=== PATIENT | male | born 1955 | race Caucasian/White ===

== ENCOUNTER 2022-06-11 18:12 | Inpatient (IN) | payer OTHER, SELFPAY ==
--- NOTE | ~2022-06-11 | MR_ITS ---
MR LUMBAR SPINE WITHOUT AND WITH CONTRAST CLINICAL INFORMATION: Abnormal lumbar spine CT with lumbar pain. COMPARISON: Lumbar spine CT 06/11/2022. TECHNIQUE: MRI of the lumbar spine was obtained using routine sequences with and without contrast. Intravenous contrast: Gadavist 6.5 mL FINDINGS: 5 nonrib-bearing lumbar-type vertebral bodies. Straightening the lumbar lordosis. Vertebral body heights are maintained. Moderate disc volume loss at L4-L5. There is disc desiccation at all lumbar levels. Modic type I endplate signal changes at L4-L5. No additional bone marrow edema. No acute fractures. Conus terminates at the L1 level. No significant extraspinal soft tissue findings. L1-L2: Diffuse annular disc bulge and prominent dorsal epidural fat result in mild to moderate central canal stenosis. No foraminal stenosis. L2-L3: Diffuse annular disc bulge with superimposed right paracentral disc protrusion and epidural lipomatosis results in moderate to severe central canal stenosis/thecal sac effacement. Right paracentral disc protrusion compresses the traversing right L3 nerve root within the right subarticular zone. Mild foraminal encroachment bilaterally. L3-L4: There is a 2.5 cm CC by 1.5 cm TV by 1 cm AP peripherally enhancing structure within the dorsal and left lateral epidural space at the L3 vertebral body level and the L3-L4 disc level that results in severe thecal sac effacement and compression of adjacent cauda equina nerve roots. Differential considerations include but are not limited to a complex disc herniation wrapping around the epidural space with posterior migration, a thrombosed, epidural varix, a complex synovial cyst, and PVNS. The appearance is not suggestive of infection. Neurosurgical consultation is advised. Right lateral disc osteophyte and facet arthropathy result in mild to moderate right-sided foraminal encroachment. L4-L5: Diffuse annular disc bulge and severe bilateral facet arthropathy and ligamentum flavum thickening. Findings in concert result in moderate central canal stenosis, severe bilateral subarticular zone stenosis with compression of the traversing L5 nerve roots bilaterally, and a left lateral disc protrusion results in severe left foraminal stenosis with compression of the exiting left L4 nerve root. Mild to moderate right foraminal encroachment. L5-S1: Diffuse annular disc bulge and severe bilateral hypertrophic facet arthropathy. No central canal stenosis. Severe bilateral foraminal stenosis with compression of the exiting L5 nerve roots bilaterally. MR/MR lumbar spine wo/w con IMPRESSION: - There is a 2.5 cm CC by 1.5 cm TV by 1 cm AP peripherally enhancing structure within the dorsal and left lateral epidural space at the L3 vertebral body level and the L3-L4 disc level that results in severe thecal sac effacement and compression of adjacent cauda equina nerve roots. Differential considerations include but are not limited to a complex disc herniation wrapping around the epidural space with posterior migration, a thrombosed, epidural varix, a complex synovial cyst, and PVNS. The appearance is not suggestive of infection. Neurosurgical consultation is advised. - At L4-L5, advanced multifactorial degenerative changes result in moderate central canal stenosis, severe bilateral subarticular zone stenosis with compression of the traversing L5 nerve roots bilaterally, and a left lateral disc protrusion results in severe left foraminal stenosis with compression of the exiting left L4 nerve root. Modic type I endplate signal changes at this level. - At L5-S1, advanced multifactorial degenerative changes result in severe bilateral foraminal stenosis with compression of the exiting L5 nerve roots bilaterally. - At L2-L3, advanced spondylitic changes and epidural lipomatosis result in moderate to severe thecal sac effacement/central canal stenosis. A right paracentral disc protrusion at this level compresses the traversing right L3 nerve root within the right subarticular zone. Findings were discussed with Dr.Raphael Self at 2:06 PM on 06/12/2022.
--- NOTE | ~2022-06-11 | MR_ITS ---
EXAMINATION: MR BRAIN WITHOUT CONTRAST CLINICAL INFORMATION: Leg weakness. COMPARISON: None available. TECHNIQUE: MRI of the brain was obtained using routine sequences without contrast. FINDINGS: No focal restricted diffusion is demonstrated to suggest acute or subacute cerebral ischemia. No evidence of acute or chronic hemorrhagic products on heme-sensitive imaging. Scattered periventricular, deep white matter, and brainstem T2 FLAIR hyperintensities consistent with mild to moderate underlying microangiopathy. The ventricles are normal in morphology and size. No abnormal mass effect. No midline shift. Normal appearance of the pituitary gland. Normal positioning of the cerebellar tonsils. Normal arterial and venous vascular flow voids are present. Normal, homogeneous marrow signal. Moderate polypoid mucosal thickening of the paranasal sinuses. No signal abnormalities within the mastoids. MR/MR head/brain wo con IMPRESSION: 1. No acute intracranial abnormalities. 2. Mild to moderate underlying microangiopathy. 3. Moderate polypoid mucosal sinonasal disease.
--- NOTE | ~2022-06-11 | CT_ITS ---
EXAMINATION: CT ABDOMEN AND PELVIS WITHOUT CONTRAST CLINICAL INFORMATION: Left flank and abdominal pain. Lumbar pain with bilateral leg weakness COMPARISON: CT abdomen pelvis 05/29/2007 TECHNIQUE: Multidetector volumetric imaging was performed from the superior aspect of the liver through the pubic symphysis. Sagittal and coronal reformatted images were obtained on the technologist's workstation. Additional axial images were obtained through the lumbar spine. Coronal and sagittal reformatted images were generated. This CT examination was performed using dose optimization techniques as appropriate, variously including the following: *Automated exposure control *Adjustment of mA and/or kV according to patient size (this includes techniques or standardized protocols for targeted exams where dose is matched to indication/reason for exam; i.e. extremities or head) *Use of iterative reconstruction technique DLP: 622 mGy-cm. FINDINGS: Assessment of solid viscera is limited due to lack of intravenous contrast. Lung bases:Grossly clear. Liver: Normal size and attenuation. No liver lesions. Gallbladder and bile ducts:No calcified gallstones, mural thickening, or pericholecystic fluid/inflammatory change. No biliary ductal dilation. Pancreas: No pancreatic lesion, ductal dilation, or peripancreatic inflammatory change. Spleen: Normal size. No splenic lesion. Adrenal Glands: Unremarkable. Kidneys and Ureters: Symmetric nephrograms. No hydronephrosis. No renal cyst or mass identified. Vasculature:Mildly tortuous abdominal aorta. No abdominal aortic aneurysm. Lymph nodes:No retroperitoneal or mesenteric lymphadenopathy. Gastrointestinal Tract: No dilated bowel loops or bowel wall thickening. The appendix is not seen. There is no pericecal inflammation to suggest acute appendicitis. Peritoneum:No ascites or intra-abdominal free air. Abdominal wall:No hernia. Bladder: Mildly diffusely thick-walled, unchanged. Pelvic Viscera: Prostate gland is normal size. Dense calcifications of the vas deferens redemonstrated, finding that can be seen in the setting of diabetes. Correlate clinically. Bones: No acute fracture or suspicious osseous lesion. CT lumbar spine: Straightening of the normal lumbar lordosis. Minimal retrolisthesis at L5-S1. No fracture. Vertebral body heights are maintained. Findings at specific levels: L1-L2: Minimal diffuse disc bulge with mild central canal with minimal neural foraminal narrowing. L2-L3: Minimal diffuse disc bulge with a superimposed right subarticular disc protrusion mild to moderately narrowing the central canal. Moderate to severe right lateral recess stenosis. Mild bilateral neural foraminal stenosis. L3-L4: Suspected severe central canal stenosis secondary to diffuse disc bulge and approximately 2.1 cm in length ovoid shaped structure in the dorsal left epidural space, see the nagy image. This could represent a large ganglion or synovial facet cyst versus an extruded or sequestered disc versus other mass. MRI is recommended for evaluation. Moderate bilateral neural foraminal stenosis. L4-L5: Moderate central canal narrowing secondary to diffuse disc bulge with facet arthrosis. Severe left and moderate right neural foraminal stenosis secondary to facet arthrosis and left foraminal disc herniation. L5-S1: Mild diffuse disc bulge and bilateral facet arthrosis. No significant central canal narrowing. Severe bilateral neural foraminal stenosis. CT/CT abdomen pelvis wo con IMPRESSION: 1. No radiodense urinary tract calculi. No hydronephrosis. 2. No acute intra-abdominal process identified. 3. Mildly diffusely thick-walled urinary bladder. Correlate clinically with signs or symptoms of chronic bladder dysfunction or bladder outlet obstruction. 4. Multilevel degenerative disc disease in the lumbar spine. At L3-L4 there is suspected severe central spinal canal stenosis in the 2.1 cm epidural space mass which is indeterminate though may represent extruded/sequestered disc material or a large cyst versus other mass. Recommend MRI lumbar spine for assessment. 5. Additional central canal and neural foraminal stenosis as detailed above.
--- NOTE | ~2022-06-11 | XR_ITS ---
EXAMINATION: XR BILATERAL HIPS WITH AP PELVIS CLINICAL INFORMATION: Back and hip pain COMPARISON: CT abdomen pelvis performed earlier the same day TECHNIQUE: AP pelvis, AP and frog-leg lateral views both hips FINDINGS: No fracture or dislocation. Bilateral hip joint spaces are maintained. Minimal acetabular rim osteophyte formation. No large osteophytes. No radiographic evidence of femoral head avascular necrosis. The pubic symphysis and SI joints are congruent and intact. Disc degenerative changes in the lower lumbar spine are noted. Calcifications of the vas deferens also seen. XR/XR hips NIKOLAY min 3V IMPRESSION: 1. No acute osseous injury. 2. Minimal bilateral hip joint degenerative change with preserved joint spaces.
[2022-06-11 18:31] VITALS: BP 136/83; PULSE 79; RESP 16; TEMP 36.7; O2SAT 97; BMI 24.7
--- NOTE | 2022-06-11 20:16 | ED_ITS ---
HPI - Back Pain/Injury General Chief Complaint: Back Pain/Injury Stated Complaint: weakness/back pain Time Seen by Provider: 06/11/22 20:36 Source: patient Mode of arrival: ambulatory (With cane) Limitations: language barrier History of Present Illness HPI Narrative: 66-year-old male presents with lower back pain radiating down bilateral legs with an episode of weakness were made both of his legs gave out. He got a new bed, and states that it was put together incorrectly and feels that his back pain could be related to that. He also reports left-sided flank pain radiating into his abdomen. Has been taking [id number] medications for pain with poor effect. He does not report fevers, chills, bowel or bladder incontinence, or loss of sensation. He does not report injury or trauma. MD elicited complaint: back pain Pertinent past history: prior back pain Onset (ago): day(s) (4) Timing: constant Severity: moderate Pain scale (0-10): 6 Similar Symptoms Previously: Yes Quality: aching and throbbing Location: lumbar spine and left flank Radiation: groin Exacerbating factors: movement, sitting upright, walking and other (Laying flat) Relieving factors: none Context: unknown Associated symptoms: weakness, difficulty walking and abdominal pain Treatments prior to arrival: NSAIDS and acetaminophen Work related injury: No Related Data Home Medications Medication Instructions Recorded Confirmed atorvastatin 20 mg tablet 1 tab PO DAILY 06/12/22 06/12/22 chlorthalidone 25 mg tablet 1 tab PO DAILY 06/12/22 06/12/22 clonazepam 0.5 mg tablet 1 tab PO TID PRN Anxiety 06/12/22 06/12/22 cyanocobalamin (vitamin B-12) 1 tab PO DAILY 06/12/22 06/12/22 1,000 mcg tablet lisinopril 20 mg tablet 1 tab PO DAILY 06/12/22 06/12/22 omega-3 fatty acids-fish oil 340 1 cap PO DAILY 06/12/22 06/12/22 mg-1,000 mg capsule (Fish Oil) risperidone 1 mg tablet 1 tab PO BEDTIME 06/12/22 06/12/22 sertraline 100 mg tablet 1 tab PO DAILY 06/12/22 06/12/22 zolpidem 10 mg tablet 1 tab PO BEDTIME PRN Sleep 06/12/22 06/12/22 Allergies Allergy/AdvReac Type Severity Reaction Status Date / Time No Known Allergies Allergy Verified 06/11/22 18:31 Review of Systems Review of Systems: Constitutional: No Fever, No Chills ENT/Mouth: No Ear Pain, No Hoarseness, No sore throat Eyes: No Eye Pain, No Swelling, No Redness, No Foreign Body Cardiovascular: No Chest Pain, No SOB Respiratory: No Cough, No Dyspnea Gastrointestinal: No Nausea, No Vomiting, No Diarrhea, No abdominal Pain Genitourinary: No Dysuria, No Hematuria Musculoskeletal: positive lumbar back pain, No Myalgias, No Joint Swelling Skin: No Skin lacerations, No rash Neuro: Positive bilateral lower extremity Weakness, No Numbness, No Paresthesias, No Loss of Consciousness, No Dizziness, No Headache Psych: No Anxiety/Panic, No Depression Heme/Lymph: no easy bruising, no Lymphadenopathy Endocrine: No Polyuria, No Polydipsia Yes all other systems are reviewed and are negative [facility] Past Medical History Attestation statement: The following information was validated with the patient. Source: old records reviewed Social History Social History Advance Directives: No Advance Directives Information Provided: Yes Physical Exam Vital Signs: Vital Signs: Last Vital Signs Temp 98.7 F 06/12/22 01:57 Pulse 81 06/12/22 01:57 Resp 16 06/12/22 01:57 BP 152/100 H 06/12/22 01:57 Pulse Ox 98 06/12/22 01:57 O2 Del Method 06/12/22 01:57 BMI result Body Mass Index 24.7 Appearance: Alert. Oriented X3. No acute distress. Eyes: Pupils equal, round and reactive to light. ENT: Pharynx normal. Neck: Normal inspection. Neck supple. CVS: Normal heart rate and rhythm. Pulses normal. Respiratory: No respiratory distress. Breath sounds normal. Abdomen: Soft and nontender. Bilateral CVA tenderness noted. Skin: Skin warm and dry. Normal skin color. Normal skin turgor. Extremities: Vertebral tenderness noted to palpation to the lumbar spine at L4- L5, strength 4/5 to lower extremities agaiinst resistance, 5/5 to upper extremities. Neuro: No motor deficit. No sensory deficit. Cranial nerves 2-12 intact. Course Course Course Narrative: 66-year-old male presents for lumbar back pain and bilateral lower extremity weakness. States that his legs gave out while he was walking. Reports his exacerbation of chronic back pain to be because of mattress that he has been sleeping on that was put together incorrectly. Physical exam indicates bilateral lower extremity weakness 4/5 against resistance. He has full sensation, and equal patellar reflexes. Tenderness to the lumbar spine at L4- L5. Bilateral CVA tenderness. Will order CT scan of abdomen pelvis with lumbar spine. X-rays of the hips. BUN 31 baseline BUN 28, creatinine 2.05, baseline creatinine is 1.3. CT scan indicates severe central canal stenosis secondary to disc bulge and approximately 2.1 cm in length COVID shaped structure in the dorsal left epid ural space. lumbar mass versus cyst. Hip x-rays are negative for acute findings, does show arthritis. Discussion with hospitalist regarding plan of care to admit. Hospitalist would like discussion with Neurology for plan prior to accepting admission. Patient does have BELEN, patient will be on maintenance fluids. 22:22 discussion with Neurology. Plan is to keep for observation, Neurology will round the morning. Plan of care is to admit for lumbar mass, requiring MRI tomorrow. Consultations Consultation #1: Aaron Time: 22:22 Consultation #2: renetta Time: 22:23 MDM - Back Pain/Injury Differential Diagnosis Differential diagnosis: Likely lumbar radiculopathy, strain of lumbar region, pyelonephritis and discitis Medical Records Attestation: I reviewed the patient's medical records. Lab Data Attestation: I reviewed the patient's lab results. Result diagrams: 06/11/22 21:15 06/11/22 21:15 Labs: Lab Results 06/11/22 06/11/22 06/11/22 Range/Units 21:15 21:15 21:15 WBC 5.0 (4.8-10.8) X10*3/uL RBC 4.39 L (4.60-5.80) X10*6/uL Hgb 14.4 (14.0-18.0) g/dl Hct 41.2 L (42.0-52.0) % MCV 93.8 (80.0-98.0) fL MCH 32.8 (27.0-33.0) pg MCHC 35.0 (31.0-36.0) g/dl RDW 11.9 (11.0-16.0) % Plt Count 187 (160-400) X10*3/uL MPV 10.4 (9.4-12.4) fL Immature Gran % (Auto) 0.4 (0.0-0.4) % Neut % (Auto) 57.3 (45-73) % Lymph % (Auto) 29.4 (20-40) % [place] % (Auto) 8.5 (2-11) % Eos % (Auto) 4.0 (0-4) % Baso % (Auto) 0.4 (0-2) % Lymph # (Auto) 1.5 (1.2-4.9) X10*3/uL [place] # (Auto) 0.4 (0.1-1.2) X10*3/uL Eos # (Auto) 0.2 (0.0-0.4) X10*3/uL Baso # (Auto) 0.0 (0.0-0.2) X10*3/uL Abs Immat Gran (auto) 0.02 (0.00-0.03) X10*3/uL Absolute Neuts (auto) 2.9 (2.0-8.3) x10*3/uL Absolute Nucleated RBC 0.000 (0.0-0.012) X10*3/uL Nucleated RBC % (auto) 0.0 (0.0-0.2) /100WBC PT 11.7 (10.0-13.1) SEC INR 1.0 (0.9-1.1) APTT 24.2 L (26.0-36.4) SEC Sodium 142 (135-145) mmol/L Potassium 3.9 (3.3-5.1) mmol/L Chloride 107 (96-108) mmol/L Carbon Dioxide 21 L (22-29) mmol/L Anion Gap 18 (12-20) BUN 31 H (9-16) mg/dL Creatinine 2.05 H (0.5-1.4) mg/dL Estim Creat Clear Calc 31.6 Estimated GFR 33 Random Glucose 92 (60-115) mg/dL Calcium 9.2 (8.4-10.2) mg/dL Magnesium 1.9 (1.6-2.6) mg/dL Troponin I High Sens (<3.5-35.0) ng/L Urine Color Urine Appearance Urine pH (5.0-8.0) Ur Specific [place] (1.005-1.025) Urine Protein (NEG-TRACE) MG/DL Urine Glucose (UA) (NEG) MG/DL Urine Ketones (NEG) MG/DL Urine Blood (NEG) Urine Nitrite (NEG) Ur Leukocyte Esterase (NEG) COVID-19 (TRACE) (Negative) COVID-19 Clin Com 06/11/22 06/11/22 06/11/22 Range/Units 21:15 21:49 22:36 WBC (4.8-10.8) X10*3/uL RBC (4.60-5.80) X10*6/uL Hgb (14.0-18.0) g/dl Hct (42.0-52.0) % MCV (80.0-98.0) fL MCH (27.0-33.0) pg MCHC (31.0-36.0) g/dl RDW (11.0-16.0) % Plt Count (160-400) X10*3/uL MPV (9.4-12.4) fL Immature Gran % (Auto) (0.0-0.4) % Neut % (Auto) (45-73) % Lymph % (Auto) (20-40) % [place] % (Auto) (2-11) % Eos % (Auto) (0-4) % Baso % (Auto) (0-2) % Lymph # (Auto) (1.2-4.9) X10*3/uL [place] # (Auto) (0.1-1.2) X10*3/uL Eos # (Auto) (0.0-0.4) X10*3/uL Baso # (Auto) (0.0-0.2) X10*3/uL Abs Immat Gran (auto) (0.00-0.03) X10*3/uL Absolute Neuts (auto) (2.0-8.3) x10*3/uL Absolute Nucleated RBC (0.0-0.012) X10*3/uL Nucleated RBC % (auto) (0.0-0.2) /100WBC PT (10.0-13.1) SEC INR (0.9-1.1) APTT (26.0-36.4) SEC Sodium (135-145) mmol/L Potassium (3.3-5.1) mmol/L Chloride (96-108) mmol/L Carbon Dioxide (22-29) mmol/L Anion Gap (12-20) BUN (9-16) mg/dL Creatinine (0.5-1.4) mg/dL Estim Creat Clear Calc Estimated GFR Random Glucose (60-115) mg/dL Calcium (8.4-10.2) mg/dL Magnesium (1.6-2.6) mg/dL Troponin I High Sens < 3.5 (<3.5-35.0) ng/L Urine Color YELLOW Urine Appearance CLEAR Urine pH 5.5 (5.0-8.0) Ur Specific [place] 1.020 (1.005-1.025) Urine Protein NEG (NEG-TRACE) MG/DL Urine Glucose (UA) NEG (NEG) MG/DL Urine Ketones NEG (NEG) MG/DL Urine Blood NEG (NEG) Urine Nitrite NEG (NEG) Ur Leukocyte Esterase NEG (NEG) COVID-19 (TRACE) Negative (Negative) COVID-19 Clin Com See Note Imaging Data CT abdomen pelvis lumbar spine: Attestation: I personally reviewed and interpreted this imaging study as follows: Radiologist's impression: EXAMINATION: CT ABDOMEN AND PELVIS WITHOUT CONTRAST CLINICAL INFORMATION: Left flank and abdominal pain. Lumbar pain with bilateral leg weakness COMPARISON: CT abdomen pelvis 05/29/2007 TECHNIQUE: Multidetector volumetric imaging was performed from the superior aspect of the liver through the pubic symphysis. Sagittal and coronal reformatted images were obtained on the technologist's workstation. Additional axial images were obtained through the lumbar spine. Coronal and sagittal reformatted images were generated. This CT examination was performed using dose optimization techniques as appropriate, variously including the following: *Automated exposure control *Adjustment of mA and/or kV according to patient size (this includes techniques or standardized protocols for targeted exams where dose is matched to indication/reason for exam; i.e. extremities or head) *Use of iterative reconstruction technique DLP: 622 mGy-cm. FINDINGS: Assessment of solid viscera is limited due to lack of intravenous contrast. Lung bases:Grossly clear. Liver: Normal size and attenuation. No liver lesions. Gallbladder and bile ducts:No calcified gallstones, mural thickening, or pericholecystic fluid/inflammatory change. No biliary ductal dilation. Pancreas: No pancreatic lesion, ductal dilation, or peripancreatic inflammatory change.? Spleen: Normal size. No splenic lesion.? Adrenal Glands: Unremarkable.? Kidneys and Ureters: Symmetric nephrograms. No hydronephrosis.? No renal cyst or mass identified. Vasculature:Mildly tortuous abdominal aorta. No abdominal aortic aneurysm. Lymph nodes:No retroperitoneal or mesenteric lymphadenopathy. Gastrointestinal Tract: No dilated bowel loops or bowel wall thickening. The appendix is not seen. There is no pericecal inflammation to suggest acute appendicitis. Peritoneum:No ascites or intra-abdominal free air. Abdominal wall:No hernia. Bladder: Mildly diffusely thick-walled, unchanged.? Pelvic Viscera: Prostate gland is normal size. Dense calcifications of the vas deferens redemonstrated, finding that can be seen in the setting of diabetes. Correlate clinically.? Bones: No acute fracture or suspicious osseous lesion. CT lumbar spine: Straightening of the normal lumbar lordosis. Minimal retrolisthesis at L5-S1. No fracture. Vertebral body heights are maintained. Findings at specific levels: L1-L2: Minimal diffuse disc bulge with mild central canal with minimal neural foraminal narrowing. L2-L3: Minimal diffuse disc bulge with a superimposed right subarticular disc protrusion mild to moderately narrowing the central canal. Moderate to severe right lateral recess stenosis. Mild bilateral neural foraminal stenosis. L3-L4: Suspected severe central canal stenosis secondary to diffuse disc bulge and approximately 2.1 cm in length ovoid shaped structure in the dorsal left epidural space, see the nagy image. This could represent a large ganglion or synovial facet cyst versus an extruded or sequestered disc versus other mass. MRI is recommended for evaluation. Moderate bilateral neural foraminal stenosis. L4-L5: Moderate central canal narrowing secondary to diffuse disc bulge with facet arthrosis. Severe left and moderate right neural foraminal stenosis secondary to facet arthrosis and left foraminal disc herniation. L5-S1: Mild diffuse disc bulge and bilateral facet arthrosis. No significant central canal narrowing. Severe bilateral neural foraminal stenosis. CT/CT lumbar spine wo con IMPRESSION: ? 1. No radiodense urinary tract calculi. No hydronephrosis. 2. No acute intra-abdominal process identified. 3. Mildly diffusely thick-walled urinary bladder. Correlate clinically with signs or symptoms of chronic bladder dysfunction or bladder outlet obstruction. 4. Multilevel degenerative disc disease in the lumbar spine. At L3-L4 there is suspected severe central spinal canal stenosis in the 2.1 cm epidural space mass which is indeterminate though may represent extruded/sequestered disc material or a large cyst versus other mass. Recommend MRI lumbar spine for assessment. 5. Additional central canal and neural foraminal stenosis as detailed above. ? Hip x-ray: Attestation: I personally reviewed and interpreted this imaging study as follows: Radiologist's impression: EXAMINATION: XR BILATERAL HIPS WITH AP PELVIS CLINICAL INFORMATION: Back and hip pain COMPARISON: CT abdomen pelvis performed earlier the same day TECHNIQUE: AP pelvis, AP and frog-leg lateral views both hips FINDINGS: No fracture or dislocation. Bilateral hip joint spaces are maintained. Minimal acetabular rim osteophyte formation. No large osteophytes. No radiographic evidence of femoral head avascular necrosis. The pubic symphysis and SI joints are congruent and intact. Disc degenerative changes in the lower lumbar spine are noted. Calcifications of the vas deferens also seen. XR/XR hips NIKOLAY min 3V IMPRESSION: ? 1. No acute osseous injury. 2. Minimal bilateral hip joint degenerative change with preserved joint spaces. ECG Data Attestation: I personally reviewed and interpreted this ECG as follows: ECG interpretation date: 06/12/22 ECG interpretation time: 23:39 Prior ECG tracings: not available for review Interpretation: Vent. rate 80 BPM NE interval 170 ms QRS duration 86 ms QT/QTc 374/431 ms P-R-T axes 46 -18 28 Normal sinus rhythm Normal ECG No previous ECGs available Discharge Plan Discharge Clinical Impression: Lumbar epidural mass, BELEN (acute kidney injury) Patient Disposition: Admitted As Inpatient
--- NOTE | 2022-06-11 20:40 | ECG_ITS ---
Test Reason : WEAKNESS Blood Pressure : / mmHG Vent. Rate : 080 BPM Atrial Rate : 080 BPM P-R Int : 170 ms QRS Dur : 086 ms QT Int : 374 ms P-R-T Axes : 046 -18 028 degrees QTc Int : 431 ms Normal sinus rhythm Normal ECG No previous ECGs available Referred By: Irma Mcgovern Electronically Signed By:ELIU BRUCE MD
[2022-06-11 21:21] LABS: MANUAL DIFF FLAG NO
[2022-06-11 21:29] LABS: Basophils Percent Auto 0.4 % (0-2); Eosinophils Absolute Auto 0.2 X10*3/uL (0.0-0.4); Hematocrit 41.2 % (42.0-52.0); Hemoglobin 14.4 g/dl (14.0-18.0); Imm Gran Abs Auto 0.02 X10*3/uL (0.00-0.03); Imm Gran Pct Auto 0.4 % (0.0-0.4); Lymphocytes Absolute Auto 1.5 X10*3/uL (1.2-4.9); Lymphocytes Percent Auto 29.4 % (20-40); Mean Corpuscular Hemoglobin 32.8 pg (27.0-33.0); Mean Corpuscular Volume 93.8 fL (80.0-98.0); Mean Platelet Volume 10.4 fL (9.4-12.4); Monocytes Absolute Auto 0.4 X10*3/uL (0.1-1.2); Monocytes Percent Auto 8.5 % (2-11); Neutrophils Absolute Auto 2.9 x10*3/uL (2.0-8.3); Neutrophils Percent Auto 57.3 % (45-73); Platelet Count 187 X10*3/uL (160-400); Red Blood Count 4.39 X10*6/uL (4.60-5.80); Red Cell Distribution Width 11.9 % (11.0-16.0)
[2022-06-11 21:34] LABS: Anion Gap 18 (12-20); Blood Urea Nitrogen 31 mg/dL (9-16); Calcium 9.2 mg/dL (8.4-10.2); Carbon Dioxide 21 mmol/L (22-29); Chloride 107 mmol/L (96-108); Creatinine Clr Calc Pharmacy 31.6; Estimated Glomerular Filt Rate 33; Glucose Random 92 mg/dL (60-115); Magnesium 1.9 mg/dL (1.6-2.6); Potassium 3.9 mmol/L (3.3-5.1); Sodium 142 mmol/L (135-145)
[2022-06-11 21:38] LABS: Prothrombin Time 11.7 SEC (10.0-13.1)
[2022-06-11 21:40] LABS: Partial Thromboplastin Time 24.2 SEC (26.0-36.4); Troponin-I High Sensitivity < 3.5 ng/L (<3.5-35.0)
[2022-06-11 22:10] LABS: Appearance Urine CLEAR; Color Urine YELLOW; Glucose Urine UA NEG (NEG); Leukocyte Esterase Urine NEG (NEG); Nitrite Urine NEG (NEG); PH 5.5 (5.0-8.0); Urine Blood NEG (NEG); Urine Ketones NEG (NEG); Urine Protein NEG (NEG-TRACE)
--- NOTE | 2022-06-11 22:43 | P.HPHOSP_ITS ---
History of Present Illness Date of Service: 06/11/22 Chief Complaint: back pain 66-year-old male with past medical history of hypertension, anxiety and depression presents to the hospital with complaints of lumbar region back pain radiating to the legs bilaterally. Patient reports that he has had the pain for many days, but has not been significantly bothersome until today he is now 10/10, constant, worse with leaning down in his back, radiating to his legs bilaterally, has no numbness or tingling, but reports that his legs became so weak due to the pain that he could not walk as some point today. He denies any trauma or injury to the back. He denies any fever or chills, no loss of bowel or bladder control, no abdominal pain nausea or vomiting, no diarrhea constipation, no urinary symptoms and no lower extremity edema. On arrival to the ED patient hemodynamically stable with no significant abnormal vitals Labs are significant for WBC count of 5.0, creatinine of 2.05, BUN of 31, UA negative, labs otherwise unremarkable, Lumbar spine CT shows multilevel degenerative disc disease in the lumbar spine, L3-L4 there is suspected severe central spinal canal stenosis and 2.1 cm epidural space mass which is indeterminate though may represent extruded/sequested disc material or large cyst versus other mass This case was discussed with Neurology, who recommended admitting to the medical floor with MRI in the morning Review of Systems Review of Systems: Yes all other systems are reviewed and are negative [facility] Medical History (Updated 06/12/22 @ 06:37 by Billy Carlisle MD) Anxiety and depression History of hypertension Family History (Updated 06/12/22 @ 06:38 by Billy Carlisle MD) Other No family history of coronary artery disease Surgical History (Updated 06/12/22 @ 06:38 by Billy Carlisle MD) No pertinent past surgical history Social History Alcohol intake: never Patient Tobacco Use Status: Current someday Tobacco user Tobacco use type: Cigarette Cigarettes Per Day: 2 Smoked in Last 30 Days: Yes Patient Interested in Nicotine Replacement: No Patient Given Instructions on How to Stop Smoking: Yes Date Education Initiated: 06/12/22 Use of substances other than those prescribed or required for medical reasons: No Advance Directives: No Advance Directives Information Provided: Yes Meds Allergies Allergy/AdvReac Type Severity Reaction Status Date / Time No Known Allergies Allergy Verified 06/11/22 18:31 Active Medications: Current Medications Pharmacy Consult (Consult Rx Perform Med Rec) 1 each MISCELLANE ONCE STA Stop: 06/11/22 22:27 Home Medications Medication Instructions Recorded Confirmed Last Taken Type atorvastatin 20 mg tablet 1 tab PO DAILY 06/12/22 06/12/22 06/10/22 History chlorthalidone 25 mg tablet 1 tab PO DAILY 06/12/22 06/12/22 06/11/22 History clonazepam 0.5 mg tablet 1 tab PO TID PRN Anxiety 06/12/22 06/12/22 06/10/22 History cyanocobalamin (vitamin B-12) 1 tab PO DAILY 06/12/22 06/12/22 06/11/22 History 1,000 mcg tablet lisinopril 20 mg tablet 1 tab PO DAILY 06/12/22 06/12/22 06/11/22 History omega-3 fatty acids-fish oil 340 1 cap PO DAILY 06/12/22 06/12/22 06/11/22 History mg-1,000 mg capsule (Fish Oil) risperidone 1 mg tablet 1 tab PO BEDTIME 06/12/22 06/12/22 06/10/22 History sertraline 100 mg tablet 1 tab PO DAILY 06/12/22 06/12/22 06/10/22 History zolpidem 10 mg tablet 1 tab PO BEDTIME PRN Sleep 06/12/22 06/12/22 Unknown History Physical Exam Vital Signs and Narrative: Vital Signs: Last Vital Signs Temp 98.1 F 06/11/22 18:31 Pulse 79 06/11/22 18:31 Resp 16 06/11/22 18:31 BP 136/83 06/11/22 18:31 Pulse Ox 97 06/11/22 18:31 O2 Del Method 06/11/22 18:31 BMI result Body Mass Index 24.7 Const: General: cooperative and no acute distress Orientation/consciousness: patient oriented x3 Eyes: General: appearance normal, both eyes and all related structures Resp: Effort & Inspection: normal respiratory effort Auscultation: clear to auscultation bilaterally Cardio: Rate: regular rate Rhythm: regular rhythm GI: Palpation (GI): Soft to palpation Auscultation: normal bowel sounds Skin: General skin exam: no rashes or lesions noted Neuro: Other: Deficits, strength is 4/5 in both extremities likely due to pain and not actual weakness General: patient oriented x3 Cognition (Neuro): normal cognition Extrem: Other: Tenderness in the lumbar region General: Yes normal to inspection and Yes no pedal edema Results Labs CBC and Chem 7: 06/11/22 21:15 06/11/22 21:15 Labs: Laboratory Results - last 24 hr 06/11/22 06/11/22 06/11/22 21:15 21:15 21:15 MCV 93.8 MCH 32.8 MCHC 35.0 RDW 11.9 Plt Count 187 MPV 10.4 Immature Gran % (Auto) 0.4 Neut % (Auto) 57.3 Lymph % (Auto) 29.4 [place] % (Auto) 8.5 Eos % (Auto) 4.0 Baso % (Auto) 0.4 Lymph # (Auto) 1.5 [place] # (Auto) 0.4 Eos # (Auto) 0.2 Baso # (Auto) 0.0 Abs Immat Gran (auto) 0.02 Absolute Neuts (auto) 2.9 Absolute Nucleated RBC 0.000 Nucleated RBC % (auto) 0.0 PT 11.7 INR 1.0 APTT 24.2 L Anion Gap 18 Estim Creat Clear Calc 31.6 Estimated GFR 33 Random Glucose 92 Calcium 9.2 Magnesium 1.9 Urine Color Urine Appearance Urine pH Ur Specific [place] Urine Protein Urine Glucose (UA) Urine Ketones Urine Blood Urine Nitrite Ur Leukocyte Esterase 06/11/22 21:49 MCV MCH MCHC RDW Plt Count MPV Immature Gran % (Auto) Neut % (Auto) Lymph % (Auto) [place] % (Auto) Eos % (Auto) Baso % (Auto) Lymph # (Auto) [place] # (Auto) Eos # (Auto) Baso # (Auto) Abs Immat Gran (auto) Absolute Neuts (auto) Absolute Nucleated RBC Nucleated RBC % (auto) PT INR APTT Anion Gap Estim Creat Clear Calc Estimated GFR Random Glucose Calcium Magnesium Urine Color YELLOW Urine Appearance CLEAR Urine pH 5.5 Ur Specific [place] 1.020 Urine Protein NEG Urine Glucose (UA) NEG Urine Ketones NEG Urine Blood NEG Urine Nitrite NEG Ur Leukocyte Esterase NEG Imaging Radiologist's Impressions: Impressions Abdomen/Pelvis CT 06/11/22 20:55 IMPRESSION: 1. No radiodense urinary tract calculi. No hydronephrosis. 2. No acute intra-abdominal process identified. 3. Mildly diffusely thick-walled urinary bladder. Correlate clinically with signs or symptoms of chronic bladder dysfunction or bladder outlet obstruction. 4. Multilevel degenerative disc disease in the lumbar spine. At L3-L4 there is suspected severe central spinal canal stenosis in the 2.1 cm epidural space mass which is indeterminate though may represent extruded/sequestered disc material or a large cyst versus other mass. Recommend MRI lumbar spine for assessment. 5. Additional central canal and neural foraminal stenosis as detailed above. Lumbar Spine CT 06/11/22 20:55 IMPRESSION: 1. No radiodense urinary tract calculi. No hydronephrosis. 2. No acute intra-abdominal process identified. 3. Mildly diffusely thick-walled urinary bladder. Correlate clinically with signs or symptoms of chronic bladder dysfunction or bladder outlet obstruction. 4. Multilevel degenerative disc disease in the lumbar spine. At L3-L4 there is suspected severe central spinal canal stenosis in the 2.1 cm epidural space mass which is indeterminate though may represent extruded/sequestered disc material or a large cyst versus other mass. Recommend MRI lumbar spine for assessment. 5. Additional central canal and neural foraminal stenosis as detailed above. Hip X-Ray 06/11/22 21:05 IMPRESSION: 1. No acute osseous injury. 2. Minimal bilateral hip joint degenerative change with preserved joint spaces. Assessment and Plan (1) Lumbar epidural mass: Status: Acute (2) BELEN (acute kidney injury): Status: Acute Plan 66-year-old male with past medical history of hypertension presents to the hospital with complaints of back pain radiating to the legs bilaterally found to have an abnormal CT of the back # lumbar epidural mass - likely the cause of his back pain - CT findings as above - no evidence 7 rule out occult deficits at this time, has no loss of bowel or bladder control, no significant lower extremity weakness - will obtain MRI in the morning - neurology consulted who recommended admission to the hospital - pain control # BELEN - likely prerenal/secondary to possible bladder outlet obstruction? Seen on CT of the abdomen pelvis - patient denies any urinary retention - UA negative - will treat with IV fluids - follow BMP # hypertension - stable - continue home meds DVT prophylaxis: Lovenox Quality Stroke Does the patient have a stroke diagnosis?: No VTE Prior VTE?: No VTE Risk Level:: Medical - moderate - high VTE Device Contraindication: Treatment Not Indicated VTE Drug Contraindication: N/A - Med Ordered
[2022-06-11 23:01] LABS: COVID-19 Test Negative (Negative); IDNOW Serial# 55D5AD1C
[2022-06-12] VITALS (8 sets, daily range): BP systolic 115–158; BP diastolic 83–106; PULSE 67–81; RESP 14–20; TEMP 36.3–37.1; O2SAT 94–99
--- NOTE | 2022-06-12 00:07 | PC.NURSE ---
carlin ramirez completed utilizing staff assistant
[2022-06-12] MEDS: Heparin Sodium,Porcine 5,000 UNIT/ML VIAL 5000 UNIT SUBCUT ×3 (00:14→22:10)
[2022-06-12] MEDS: Lactated Ringers 1,000 ML 100 ML IVCONT ×3 (00:14→19:57)
[2022-06-12] MEDS: 0.9 % Sodium Chloride Flush 3 ML SYRINGE IVFLUSH ×3 (00:15→19:57)
[2022-06-12] MEDS: ondansetron HCL 4 MG/2 ML VIAL IVPUSH (03:19)
[2022-06-12] MEDS: Morphine Sulfate 4 MG/ML CARTRIDGE IVPUSH ×4 (03:19→17:53)
--- NOTE | 2022-06-12 04:17 | PC.NURSE ---
Pt medicated with morphine but still continues to complain of excruciating pain in the lower back and legs. Hospitalist informed and additional meds requested.
--- NOTE | 2022-06-12 07:17 | PHA.MEDREC ---
Pharmacy Consult ? Medication Reconciliation Pharmacy has reviewed the medication reconciliation completed by Latosha. Yuki Akins, StevenD
[2022-06-12 07:22] LABS: MANUAL DIFF FLAG NO
[2022-06-12 07:26] LABS: Basophils Percent Auto 0.7 % (0-2); Eosinophils Absolute Auto 0.1 X10*3/uL (0.0-0.4); Eosinophils Percent Auto 2.9 % (0-4); Hematocrit 39.3 % (42.0-52.0); Hemoglobin 13.7 g/dl (14.0-18.0); Imm Gran Abs Auto 0.01 X10*3/uL (0.00-0.03); Imm Gran Pct Auto 0.2 % (0.0-0.4); Lymphocytes Absolute Auto 1.1 X10*3/uL (1.2-4.9); Lymphocytes Percent Auto 25.2 % (20-40); Mean Corpuscular HGB Conc 34.9 g/dl (31.0-36.0); Mean Corpuscular Hemoglobin 33.1 pg (27.0-33.0); Mean Corpuscular Volume 94.9 fL (80.0-98.0); Mean Platelet Volume 10.4 fL (9.4-12.4); Monocytes Absolute Auto 0.4 X10*3/uL (0.1-1.2); Neutrophils Absolute Auto 2.6 x10*3/uL (2.0-8.3); Platelet Count 169 X10*3/uL (160-400); Red Blood Count 4.14 X10*6/uL (4.60-5.80); Red Cell Distribution Width 11.8 % (11.0-16.0); White Blood Count 4.2 X10*3/uL (4.8-10.8)
[2022-06-12 07:42] LABS: Anion Gap 14 (12-20); Blood Urea Nitrogen 30 mg/dL (9-16); Calcium 9.2 mg/dL (8.4-10.2); Carbon Dioxide 23 mmol/L (22-29); Chloride 109 mmol/L (96-108); Creatinine Clr Calc Pharmacy 32.6; Estimated Glomerular Filt Rate 34; Glucose Random 96 mg/dL (60-115); Potassium 4.1 mmol/L (3.3-5.1); Sodium 142 mmol/L (135-145)
--- NOTE | 2022-06-12 08:20 | PM.NEUROCN ---
History of Present Illness Data of Consult Service Date: 06/12/22 Primary Care Provider: Rafi Abarca MD [facility] Reason for consult: Low back pain 66 years old man who was having low back pain radiating to his legs for few days but yesterday it got severe and he could not tolerated anymore and came to emergency room. He said that his legs also got weak. Pain was radiating from lower back to posterior part of his legs to his calves. When I examined him he was not in any distress and pain was not that severe. He denied any change in bowel bladder pattern except that he was having some diarrhea. There was no recent trauma or accident or cold or flu-like illness. Review of Systems Review of Systems: As in HPI [facility] Past Medical History Medical History (Updated 06/12/22 @ 06:37 by Billy Carlisle MD) Anxiety and depression History of hypertension Family History Family History (Updated 06/12/22 @ 06:38 by Billy Carlisle MD) Other No family history of coronary artery disease Surgical History Surgical History (Updated 06/12/22 @ 06:38 by Billy Carlisle MD) No pertinent past surgical history Social History Social History Alcohol intake: never Patient Tobacco Use Status: Current someday Tobacco user Tobacco use type: Cigarette Cigarettes Per Day: 2 Smoked in Last 30 Days: Yes Patient Interested in Nicotine Replacement: No Patient Given Instructions on How to Stop Smoking: Yes Date Education Initiated: 06/12/22 Use of substances other than those prescribed or required for medical reasons: No Advance Directives: No Advance Directives Information Provided: Yes Meds Allergies Allergy/AdvReac Type Severity Reaction Status Date / Time No Known Allergies Allergy Verified 06/11/22 18:31 Active Medications: Current Medications Acetaminophen (Acetaminophen 325 Mg Tablet) 650 mg PO Q6H PRN PRN Reason: Pain, Mild (Pain Scale 1-3) Atorvastatin Calcium (Atorvastatin Calcium 20 Mg Tablet) 20 mg PO DAILY GT Clonazepam (Clonazepam 0.5 Mg Tablet) 0.5 mg PO TID PRN PRN Reason: Anxiety Cyanocobalamin (Cyanocobalamin (Vitamin B-12) 1,000 Mcg Tablet) 1,000 mcg PO DAILY GT Docusate Sodium (Docusate Sodium 100 Mg Capsule) 100 mg PO DAILY PRN PRN Reason: Constipation Heparin Sodium (Porcine) (Heparin Sodium,Porcine 5,000 Unit/Ml Vial) 5,000 unit SUBCUT Q12H [facility] Last Admin: 06/12/22 00:14 Dose: 5,000 unit Hydrochlorothiazide (Hydrochlorothiazide 25 Mg Tablet) 25 mg PO DAILY [facility] Hydromorphone HCl (Hydromorphone Hcl 0.5 Mg/0.5 Ml Syringe) 0.5 mg IVPUSH Q4H PRN; Protocol PRN Reason: Pain, Severe (Pain Scale 7-10) Lactated Ringer's (Lr) 1,000 mls @ 100 mls/hr IVCONT .Q10H [facility] Last Admin: 06/12/22 00:14 Dose: 100 mls/hr Lisinopril (Lisinopril 20 Mg Tablet) 20 mg PO DAILY [facility]; Protocol Morphine Sulfate (Morphine Sulfate 4 Mg/Ml Cartridge) 4 mg IVPUSH Q4H PRN; Protocol PRN Reason: Pain, Severe (Pain Scale 7-10) Last Admin: 06/12/22 03:19 Dose: 4 mg Ondansetron HCl (Ondansetron Hcl 4 Mg/2 Ml Vial) 4 mg IVPUSH Q8H PRN PRN Reason: Nausea and Vomiting Last Admin: 06/12/22 03:19 Dose: 4 mg Risperidone (Risperidone 1 Mg Tablet) 1 mg PO BEDTIME GT Sertraline HCl (Sertraline Hcl 100 Mg Tablet) 100 mg PO DAILY [facility] Sodium Chloride (0.9 % Sodium Chloride Flush 3 Ml Syringe) 3 ml IVFLUSH QSHIFT [facility] Last Admin: 06/12/22 00:15 Dose: 3 ml Zolpidem Tartrate (Zolpidem Tartrate 5 Mg Tablet) 5 mg PO BEDTIME PRN PRN Reason: Sleep Home Medications Medication Instructions Recorded Confirmed Last Taken Type atorvastatin 20 mg tablet 1 tab PO DAILY 06/12/22 06/12/22 06/10/22 History chlorthalidone 25 mg tablet 1 tab PO DAILY 06/12/22 06/12/22 06/11/22 History clonazepam 0.5 mg tablet 1 tab PO TID PRN Anxiety 06/12/22 06/12/22 06/10/22 History cyanocobalamin (vitamin B-12) 1 tab PO DAILY 06/12/22 06/12/22 06/11/22 History 1,000 mcg tablet lisinopril 20 mg tablet 1 tab PO DAILY 06/12/22 06/12/22 06/11/22 History omega-3 fatty acids-fish oil 340 1 cap PO DAILY 06/12/22 06/12/22 06/11/22 History mg-1,000 mg capsule (Fish Oil) risperidone 1 mg tablet 1 tab PO BEDTIME 06/12/22 06/12/22 06/10/22 History sertraline 100 mg tablet 1 tab PO DAILY 06/12/22 06/12/22 06/10/22 History zolpidem 10 mg tablet 1 tab PO BEDTIME PRN Sleep 06/12/22 06/12/22 Unknown History Physical Exam Vital Signs: Vital Signs: Last Vital Signs Temp 98.4 F 06/12/22 03:58 Pulse 81 06/12/22 03:58 Resp 16 06/12/22 03:58 BP 144/94 H 06/12/22 03:58 Pulse Ox 95 06/12/22 03:58 O2 Del Method 06/12/22 03:58 BMI result Body Mass Index 24.7 Neuro: Other: He was alert and awake with normal spontaneity of speech fluency comprehension and affect. Interview was performed with the help of his daughter as he did not speak [place]. Face was symmetrical. Visual harden are full. There was no focal arm or leg weakness. Deep tendon reflexes were 1+ in arms, good 2+ in knees, and trace in ankles with right equivocal and left flexor plantar. Speech was normal. Results Labs CBC & Chem 7: 06/12/22 06:41 06/12/22 06:41 Labs: Short CBC 06/11/22 06/12/22 Range/Units 21:15 06:41 WBC 5.0 4.2 L (4.8-10.8) X10*3/uL Hgb 14.4 13.7 L (14.0-18.0) g/dl Hct 41.2 L 39.3 L (42.0-52.0) % Plt Count 187 169 (160-400) X10*3/uL BMP 06/11/22 06/12/22 21:15 06:41 Sodium 142 142 Potassium 3.9 4.1 Chloride 107 109 H Carbon Dioxide 21 L 23 BUN 31 H 30 H Creatinine 2.05 H 1.99 H Calcium 9.2 9.2 Urine 06/11/22 Range/Units 21:49 Urine Color YELLOW Urine Appearance CLEAR Urine pH 5.5 (5.0-8.0) Ur Specific [place] 1.020 (1.005-1.025) Urine Protein NEG (NEG-TRACE) MG/DL Urine Glucose (UA) NEG (NEG) MG/DL CT of lumbar spine results were reviewed. Assessment and Plan (1) Lumbar epidural mass: Status: Acute 66 years old man with few days history of low back pain that got worse yesterday and also resulted in some leg weakness. At this time pain was manageable, there was no definite arm or leg weakness, and reflexes in legs were relatively brisk with right equivocal plantar. CT scan of lumbar spine has revealed a possible epidural mass. I recommend obtaining an MRI of lumbosacral spine with and without contrast. As far as upper motor neuron type abnormalities on his neurological examination are concerned, they are unrelated to his back pain and might be due to microvascular disease of brain related to hypertension. Alternatively, they might be a common diagnosis. I also recommend obtaining an MRI of brain without contrast for clarification. Procedures Date of Service Date of Service: 06/12/22
[2022-06-12] MEDS: Cyanocobalamin (Vitamin B-12) 1,000 MCG TABLET 1000 MCG PO (08:29)
[2022-06-12] MEDS: lisinopriL 20 MG TABLET PO (08:29)
[2022-06-12] MEDS: Atorvastatin Calcium 20 MG TABLET PO (08:29)
[2022-06-12] MEDS: hydroCHLOROthiazide 25 MG TABLET PO (08:29)
[2022-06-12] MEDS: Sertraline HCL 100 MG TABLET PO (08:29)
[2022-06-12] MEDS: HYDROmorphone HCl 0.5 MG/0.5 ML SYRINGE IVPUSH (10:44)
--- NOTE | 2022-06-12 12:04 | HO.PM.IMPN ---
Subjective Subjective Date of Service: 06/12/22 Interval History: cc: back pain interval history:some improvement Cardiovascular Cardiovascular: Reports no additional cardiovascular complaints Respiratory Respiratory: Reports no additional respiratory complaints Physical Exam Vital Signs: Vital Signs: Last Vital Signs Temp 97.4 F 06/12/22 11:35 Pulse 67 06/12/22 11:35 Resp 18 06/12/22 11:35 BP 134/94 H 06/12/22 11:35 Pulse Ox 95 06/12/22 11:35 O2 Del Method 06/12/22 11:35 BMI result Body Mass Index 24.7 General: AO X 3, no acute distress Resp: CTA bilateral, no accessory muscles used CVS: S1,S2,RRR GI: soft, non tender, non distended Neuro: motor grossly intact, alert Psych: appropriate affect, appropriate insight Objective Data Active Medications Acetaminophen (Acetaminophen 325 Mg Tablet) 650 mg PO Q6H PRN PRN Reason: Pain, Mild (Pain Scale 1-3) Atorvastatin Calcium (Atorvastatin Calcium 20 Mg Tablet) 20 mg PO DAILY [facility] Last Admin: 06/12/22 08:29 Dose: 20 mg Documented By: SIMRAN Clonazepam (Clonazepam 0.5 Mg Tablet) 0.5 mg PO TID PRN PRN Reason: Anxiety Cyanocobalamin (Cyanocobalamin (Vitamin B-12) 1,000 Mcg Tablet) 1,000 mcg PO DAILY [facility] Last Admin: 06/12/22 08:29 Dose: 1,000 mcg Documented By: SIMRAN Docusate Sodium (Docusate Sodium 100 Mg Capsule) 100 mg PO DAILY PRN PRN Reason: Constipation Heparin Sodium (Porcine) (Heparin Sodium,Porcine 5,000 Unit/Ml Vial) 5,000 unit SUBCUT Q12H [facility] Last Admin: 06/12/22 10:45 Dose: 5,000 unit Documented By: SIMRAN Hydrochlorothiazide (Hydrochlorothiazide 25 Mg Tablet) 25 mg PO DAILY [facility] Last Admin: 06/12/22 08:29 Dose: 25 mg Documented By: SIMRAN Hydromorphone HCl (Hydromorphone Hcl 0.5 Mg/0.5 Ml Syringe) 0.5 mg IVPUSH Q4H PRN; Protocol PRN Reason: Pain, Severe (Pain Scale 7-10) Last Admin: 06/12/22 10:44 Dose: 0.5 mg Documented By: SIMRAN Lactated Ringer's (Lr) 1,000 mls @ 100 mls/hr IVCONT .Q10H [facility] Last Admin: 06/12/22 08:31 Dose: 100 mls/hr Documented By: SIMRAN Morphine Sulfate (Morphine Sulfate 4 Mg/Ml Cartridge) 4 mg IVPUSH Q4H PRN; Protocol PRN Reason: Pain, Severe (Pain Scale 7-10) Last Admin: 06/12/22 08:28 Dose: 4 mg Documented By: SIMRAN Ondansetron HCl (Ondansetron Hcl 4 Mg/2 Ml Vial) 4 mg IVPUSH Q8H PRN PRN Reason: Nausea and Vomiting Last Admin: 06/12/22 03:19 Dose: 4 mg Documented By: JAYNE Risperidone (Risperidone 1 Mg Tablet) 1 mg PO BEDTIME GT Sertraline HCl (Sertraline Hcl 100 Mg Tablet) 100 mg PO DAILY [facility] Last Admin: 06/12/22 08:29 Dose: 100 mg Documented By: SIMRAN Sodium Chloride (0.9 % Sodium Chloride Flush 3 Ml Syringe) 3 ml IVFLUSH QSHIFT [facility] Last Admin: 06/12/22 08:29 Dose: 3 ml Documented By: SIMRAN Zolpidem Tartrate (Zolpidem Tartrate 5 Mg Tablet) 5 mg PO BEDTIME PRN PRN Reason: Sleep Labs CBC & Chem 7: 06/12/22 06:41 06/12/22 06:41 Labs: Laboratory Results - last 24 hr 06/11/22 06/11/22 06/11/22 21:15 21:15 21:15 MCV 93.8 MCH 32.8 MCHC 35.0 RDW 11.9 Plt Count 187 MPV 10.4 Immature Gran % (Auto) 0.4 Neut % (Auto) 57.3 Lymph % (Auto) 29.4 [place] % (Auto) 8.5 Eos % (Auto) 4.0 Baso % (Auto) 0.4 Lymph # (Auto) 1.5 [place] # (Auto) 0.4 Eos # (Auto) 0.2 Baso # (Auto) 0.0 Abs Immat Gran (auto) 0.02 Absolute Neuts (auto) 2.9 Absolute Nucleated RBC 0.000 Nucleated RBC % (auto) 0.0 PT 11.7 INR 1.0 APTT 24.2 L Anion Gap 18 Estim Creat Clear Calc 31.6 Estimated GFR 33 Random Glucose 92 Calcium 9.2 Magnesium 1.9 Urine Color Urine Appearance Urine pH Ur Specific [place] Urine Protein Urine Glucose (UA) Urine Ketones Urine Blood Urine Nitrite Ur Leukocyte Esterase COVID-19 (TRACE) COVID-19 Clin Com 06/11/22 06/11/22 06/12/22 21:49 22:36 06:41 MCV 94.9 MCH 33.1 H MCHC 34.9 RDW 11.8 Plt Count 169 MPV 10.4 Immature Gran % (Auto) 0.2 Neut % (Auto) 61.0 Lymph % (Auto) 25.2 [place] % (Auto) 10.0 Eos % (Auto) 2.9 Baso % (Auto) 0.7 Lymph # (Auto) 1.1 L [place] # (Auto) 0.4 Eos # (Auto) 0.1 Baso # (Auto) 0.0 Abs Immat Gran (auto) 0.01 Absolute Neuts (auto) 2.6 Absolute Nucleated RBC 0.000 Nucleated RBC % (auto) 0.0 PT INR APTT Anion Gap Estim Creat Clear Calc Estimated GFR Random Glucose Calcium Magnesium Urine Color YELLOW Urine Appearance CLEAR Urine pH 5.5 Ur Specific [place] 1.020 Urine Protein NEG Urine Glucose (UA) NEG Urine Ketones NEG Urine Blood NEG Urine Nitrite NEG Ur Leukocyte Esterase NEG COVID-19 (TRACE) Negative COVID-19 Clin Com See Note 06/12/22 06:41 MCV MCH MCHC RDW Plt Count MPV Immature Gran % (Auto) Neut % (Auto) Lymph % (Auto) [place] % (Auto) Eos % (Auto) Baso % (Auto) Lymph # (Auto) [place] # (Auto) Eos # (Auto) Baso # (Auto) Abs Immat Gran (auto) Absolute Neuts (auto) Absolute Nucleated RBC Nucleated RBC % (auto) PT INR APTT Anion Gap 14 Estim Creat Clear Calc 32.6 Estimated GFR 34 Random Glucose 96 Calcium 9.2 Magnesium Urine Color Urine Appearance Urine pH Ur Specific [place] Urine Protein Urine Glucose (UA) Urine Ketones Urine Blood Urine Nitrite Ur Leukocyte Esterase COVID-19 (TRACE) COVID-19 Clin Com Assessment and Plan (1) Lumbar epidural mass: Status: Acute (2) BELEN (acute kidney injury): Status: Acute Plan 66M presented with back pain found to have abnormal CT finding and BELEN BELEN multifactorial - dehydration, nsaids, ?obstruction hold sushma-i, give ivf, monitor bmp lumbar epidureal mass neuro appreciated, mri lumbar spine with and without contrast htn holding sushma-i hld statin 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
[2022-06-12] MEDS: risperiDONE 1 MG TABLET PO (19:57)
[2022-06-13] VITALS (9 sets, daily range): BP systolic 124–164; BP diastolic 77–95; PULSE 71–96; RESP 14–20; TEMP 36.7–37.2; O2SAT 93–96
[2022-06-13] MEDS: Lactated Ringers 1,000 ML 100 ML IVCONT (05:01)
[2022-06-13 07:28] LABS: Hematocrit 35.1 % (42.0-52.0); Hemoglobin 12.2 g/dl (14.0-18.0); Mean Corpuscular HGB Conc 34.8 g/dl (31.0-36.0); Mean Corpuscular Hemoglobin 33.2 pg (27.0-33.0); Mean Corpuscular Volume 95.6 fL (80.0-98.0); Mean Platelet Volume 10.4 fL (9.4-12.4); Platelet Count 151 X10*3/uL (160-400); Red Blood Count 3.67 X10*6/uL (4.60-5.80); White Blood Count 4.2 X10*3/uL (4.8-10.8)
[2022-06-13 07:49] LABS: Anion Gap 13 (12-20); Blood Urea Nitrogen 24 mg/dL (9-16); Calcium 9.2 mg/dL (8.4-10.2); Carbon Dioxide 23 mmol/L (22-29); Chloride 109 mmol/L (96-108); Creatinine Clr Calc Pharmacy 42.7; Estimated Glomerular Filt Rate 46; Glucose Fasting 99 mg/dL (60-99); Potassium 3.9 mmol/L (3.3-5.1); Sodium 141 mmol/L (135-145)
[2022-06-13] MEDS: Atorvastatin Calcium 20 MG TABLET PO (08:42)
[2022-06-13] MEDS: Cyanocobalamin (Vitamin B-12) 1,000 MCG TABLET 1000 MCG PO (08:42)
[2022-06-13] MEDS: Sertraline HCL 100 MG TABLET PO (08:42)
[2022-06-13] MEDS: hydroCHLOROthiazide 25 MG TABLET PO (08:42)
[2022-06-13] MEDS: Morphine Sulfate 4 MG/ML CARTRIDGE IVPUSH ×2 (08:55→15:37)
--- NOTE | 2022-06-13 13:08 | P.PNIM_ITS ---
Subjective Subjective Date of Service: 06/13/22 Interval History: cc: back pain interval history:some improvement Cardiovascular Cardiovascular: Reports no additional cardiovascular complaints Respiratory Respiratory: Reports no additional respiratory complaints Physical Exam Vital Signs: Vital Signs: Last Vital Signs Temp 98.0 F 06/13/22 11:00 Pulse 84 06/13/22 11:00 Resp 18 06/13/22 11:00 BP 124/81 06/13/22 11:00 Pulse Ox 95 06/13/22 11:00 O2 Del Method 06/13/22 11:00 BMI result Body Mass Index 24.7 General: AO X 3, no acute distress Resp: CTA bilateral, no accessory muscles used CVS: S1,S2,RRR GI: soft, non tender, non distended Neuro: motor grossly intact, alert Psych: appropriate affect, appropriate insight Objective Data Active Medications Acetaminophen (Acetaminophen 325 Mg Tablet) 650 mg PO Q6H PRN PRN Reason: Pain, Mild (Pain Scale 1-3) Atorvastatin Calcium (Atorvastatin Calcium 20 Mg Tablet) 20 mg PO DAILY [facility] Last Admin: 06/13/22 08:42 Dose: 20 mg Documented By: LENNOX Clonazepam (Clonazepam 0.5 Mg Tablet) 0.5 mg PO TID PRN PRN Reason: Anxiety Cyanocobalamin (Cyanocobalamin (Vitamin B-12) 1,000 Mcg Tablet) 1,000 mcg PO DAILY [facility] Last Admin: 06/13/22 08:42 Dose: 1,000 mcg Documented By: LENNOX Docusate Sodium (Docusate Sodium 100 Mg Capsule) 100 mg PO DAILY PRN PRN Reason: Constipation Heparin Sodium (Porcine) (Heparin Sodium,Porcine 5,000 Unit/Ml Vial) 5,000 unit SUBCUT Q12H [facility] Last Admin: 06/12/22 22:10 Dose: 5,000 unit Documented By: JOSE Hydrochlorothiazide (Hydrochlorothiazide 25 Mg Tablet) 25 mg PO DAILY [facility] Last Admin: 06/13/22 08:42 Dose: 25 mg Documented By: LENNOX Hydromorphone HCl (Hydromorphone Hcl 0.5 Mg/0.5 Ml Syringe) 0.5 mg IVPUSH Q4H PRN; Protocol PRN Reason: Pain, Severe (Pain Scale 7-10) Last Admin: 06/12/22 10:44 Dose: 0.5 mg Documented By: SIMRAN Methylprednisolone (Methylprednisolone 4 Mg Tablet) 20 mg PO DAILY [facility] Morphine Sulfate (Morphine Sulfate 4 Mg/Ml Cartridge) 4 mg IVPUSH Q4H PRN; Protocol PRN Reason: Pain, Severe (Pain Scale 7-10) Last Admin: 06/13/22 08:55 Dose: 4 mg Documented By: SOBIA Ondansetron HCl (Ondansetron Hcl 4 Mg/2 Ml Vial) 4 mg IVPUSH Q8H PRN PRN Reason: Nausea and Vomiting Last Admin: 06/12/22 03:19 Dose: 4 mg Documented By: JAYNE Risperidone (Risperidone 1 Mg Tablet) 1 mg PO BEDTIME [facility] Last Admin: 06/12/22 19:57 Dose: 1 mg Documented By: THERESE Sertraline HCl (Sertraline Hcl 100 Mg Tablet) 100 mg PO DAILY [facility] Last Admin: 06/13/22 08:42 Dose: 100 mg Documented By: LENNOX Sodium Chloride (0.9 % Sodium Chloride Flush 3 Ml Syringe) 3 ml IVFLUSH QSHIFT [facility] Last Admin: 06/12/22 19:57 Dose: 3 ml Documented By: THERESE Zolpidem Tartrate (Zolpidem Tartrate 5 Mg Tablet) 5 mg PO BEDTIME PRN PRN Reason: Sleep Labs CBC & Chem 7: 06/13/22 07:03 06/13/22 07:03 Labs: Laboratory Results - last 24 hr 06/13/22 06/13/22 07:03 07:03 MCV 95.6 MCH 33.2 H MCHC 34.8 RDW 12.0 Plt Count 151 L MPV 10.4 Absolute Nucleated RBC 0.000 Nucleated RBC % (auto) 0.0 Anion Gap 13 Estim Creat Clear Calc 42.7 Estimated GFR 46 Fasting Glucose 99 Calcium 9.2 Assessment and Plan (1) Lumbar epidural mass: Status: Acute (2) BELEN (acute kidney injury): Status: Acute Plan 66M presented with back pain found to have abnormal CT finding and BELEN BELEN multifactorial - dehydration, nsaids, ?obstruction holding sushma-i, improving, monitor bmp back pain likely radiculatopathy from spinal nerves will start medrol dosepak taper lumbar epidureal mass MRI with mass with possible compression of cauda equina nerve roots, d/w neurosurgery at [facility], no evidence of cauda equina syndrome, recommended medrol dosepak, can follow up outpatient if still symptomatic htn holding sushma-i hld statin mood disroeder arcadio report of [facility] abnormality of neuro exam mri brain unremarkable dvt prophylaxis - hep sq full code reason for continued hospitalization:still with significant pain, unable to ambulate Quality Stroke Does the patient have a stroke diagnosis?: No VTE Prior VTE?: No VTE Risk Level:: Medical - moderate - high VTE Device Contraindication: Treatment Not Indicated VTE Drug Contraindication: N/A - Med Ordered
[2022-06-13] MEDS: methylPREDNISolone 4 MG TABLET 20 MG PO (17:05)
[2022-06-13] MEDS: Heparin Sodium,Porcine 5,000 UNIT/ML VIAL 5000 UNIT SUBCUT (17:07)
[2022-06-13] MEDS: 0.9 % Sodium Chloride Flush 3 ML SYRINGE IVFLUSH ×2 (17:08→20:52)
[2022-06-13] MEDS: HYDROmorphone HCl 0.5 MG/0.5 ML SYRINGE IVPUSH (17:47)
[2022-06-13] MEDS: risperiDONE 1 MG TABLET PO (20:51)
[2022-06-14 03:26] VITALS: BP 149/84; PULSE 89; RESP 18; TEMP 36.1; O2SAT 95
[2022-06-14] MEDS: Heparin Sodium,Porcine 5,000 UNIT/ML VIAL 5000 UNIT SUBCUT (05:24)
[2022-06-14] MEDS: Morphine Sulfate 4 MG/ML CARTRIDGE IVPUSH (05:34)
[2022-06-14 07:12] LABS: Hematocrit 34.7 % (42.0-52.0); Hemoglobin 12.2 g/dl (14.0-18.0); Mean Corpuscular HGB Conc 35.2 g/dl (31.0-36.0); Mean Corpuscular Hemoglobin 33.1 pg (27.0-33.0); Mean Platelet Volume 10.2 fL (9.4-12.4); Platelet Count 155 X10*3/uL (160-400); Red Blood Count 3.69 X10*6/uL (4.60-5.80); Red Cell Distribution Width 11.6 % (11.0-16.0); White Blood Count 4.1 X10*3/uL (4.8-10.8)
[2022-06-14 07:33] VITALS: BP 158/100; PULSE 80; RESP 12; TEMP 36; O2SAT 94
[2022-06-14 07:44] LABS: Anion Gap 14 (12-20); Blood Urea Nitrogen 28 mg/dL (9-16); Calcium 9.6 mg/dL (8.4-10.2); Carbon Dioxide 24 mmol/L (22-29); Chloride 107 mmol/L (96-108); Creatinine Clr Calc Pharmacy 51.1; Estimated Glomerular Filt Rate 57; Glucose Fasting 106 mg/dL (60-99); Potassium 3.8 mmol/L (3.3-5.1); Sodium 141 mmol/L (135-145)
--- NOTE | 2022-06-14 08:28 | MHC.CM.PN ---
CM initially called Patient's cell @ [phone] with the intention of using a Telephonic Lead Recreation Assistant but Patient's Daughter/Iraj, who speaks Armenian answered the phone. CM addressed IMM with both Daughter over the phone and Patient in person, providing him with the original IMM in Greenlandic and placing a copy on the chart. Patient lives in a house with his , Daughter, and Son-in-Law and he uses a cane to assist with mobility. Home no services is the goal and CM has initiated and will follow for dc planning. Patient has received Pfizer/Covid vax X4 and his PCP is Dr. Rafi Abarca.
[2022-06-14] MEDS: Sertraline HCL 100 MG TABLET PO (08:52)
[2022-06-14] MEDS: hydroCHLOROthiazide 25 MG TABLET PO (08:52)
[2022-06-14] MEDS: Cyanocobalamin (Vitamin B-12) 1,000 MCG TABLET 1000 MCG PO (08:52)
[2022-06-14] MEDS: Atorvastatin Calcium 20 MG TABLET PO (08:53)
[2022-06-14] MEDS: 0.9 % Sodium Chloride Flush 3 ML SYRINGE IVFLUSH (08:53)
--- NOTE | 2022-06-14 09:00 | PM.DS ---
DS: Providers Provider Date of Service: 06/14/22 Date of admission: 06/13/22 15:15 Primary care physician: Rafi Abarca MD Consults: 06/11/22 22:37 Consult to Neurology Routine Consulting Provider: [facility] Reason for consultation: back pain, abnormal back CT Has provider been notified: Yes DS: Diagnosis Discharge Diagnosis (1) Lumbar epidural mass: Status: Acute (2) BELEN (acute kidney injury): Status: Acute DS: Summary Hospital Course Hospital Course: from initial hpi: Chief Complaint: back pain 66-year-old male with past medical history of hypertension, anxiety and depression presents to the hospital with complaints of lumbar region back pain radiating to the legs bilaterally.? Patient reports that he has had the pain for many days, but has not been significantly bothersome until today he is now 10/10, constant, worse with leaning down in his back, radiating to his legs bilaterally, has no numbness or tingling, but reports that his legs became so weak due to the pain that he could not walk as some point today.? He denies any trauma or injury to the back. He denies any fever or chills, no loss of bowel or bladder control, no abdominal pain nausea or vomiting, no diarrhea constipation, no urinary symptoms and no lower extremity edema. On arrival to the ED patient hemodynamically stable with no significant abnormal vitals Labs are significant for WBC count of 5.0, creatinine of 2.05, BUN of 31, UA negative, labs otherwise unremarkable, Lumbar spine CT shows multilevel degenerative disc disease in the lumbar spine, L3-L4 there is suspected severe central spinal canal stenosis and 2.1 cm epidural space mass which is indeterminate though may represent extruded/sequested disc material or large cyst versus other mass This case was discussed with Neurology, who recommended admitting to the medical floor with MRI in the morning hospital course: Patient was admitted for back pain, likely due to radiculopathy. For his epidural mass found on CT he underwent MRI which showed mass (non malignant or infectious) with possible compression of the cauda equina nerve roots. This was discussed with nurse surgery at [facility] and given no clinical evidence of cauda equinus syndrome, most likely his symptoms were due to radiculopathy at lower levels, there recommendations were for Medrol Dosepak and outpatient follow-up with symptomatic. Medrol was started and patient had improvement in symptoms and was able to ambulate with minimal pain. Patient denied any saddle anesthesia, urinary retention, fecal incontinence. On admission patient also noted to have acute kidney injury, likely multifactorial due to dehydration and NSAIDs, question of obstruction, however, patient was able to fully empty bladder without Aquino. Lisinopril was held and patient was given IV fluids with resolution of his acute kidney injury. For his hypertension his lisinopril will be restarted on discharge. For hyperlipidemia is continue on statin. For his mood disorder is continue on Zoloft. Neurology and also recommended MRI of the brain which was unremarkable. Patient is feeling better will be discharged home on Medrol Dosepak, he is instructed to keep an eye out for cauda equina symptoms. Time Spent with Patient Time attestation: Total time spent providing and/or coordinating discharge services: Discharge coordination time: Greater than 30 minutes Quality: Safe Use of Opioids Does Pt have an Active Cancer Diagnosis on the Problem List?: No Quality: Stroke Does the patient have a stroke diagnosis?: No Physical Exam Vital Signs: Vital Signs: Last Vital Signs Temp 96.8 F 06/14/22 07:33 Pulse 80 06/14/22 07:33 Resp 12 06/14/22 07:33 BP 158/100 H 06/14/22 07:33 Pulse Ox 94 06/14/22 07:33 O2 Del Method 06/14/22 07:33 BMI result Body Mass Index 24.7 General: AO X 3, no acute distress Resp: CTA bilateral, no accessory muscles used CVS: S1,S2,RRR GI: soft, non tender, non distended Neuro: motor grossly intact, alert Psych: appropriate affect, appropriate insight DS: Data Data Completed and Pending Labs on day of discharge: Laboratory Results - last 24 hr 06/14/22 06/14/22 06:50 06:50 WBC 4.1 L RBC 3.69 L Hgb 12.2 L Hct 34.7 L MCV 94.0 MCH 33.1 H MCHC 35.2 RDW 11.6 Plt Count 155 L MPV 10.2 Absolute Nucleated RBC 0.000 Nucleated RBC % (auto) 0.0 Sodium 141 Potassium 3.8 Chloride 107 Carbon Dioxide 24 Anion Gap 14 BUN 28 H Creatinine 1.27 Estim Creat Clear Calc 51.1 Estimated GFR 57 Fasting Glucose 106 H Calcium 9.6 Discharge Plan Discharge Patient Disposition: Home, Self-Care Discharge Diagnosis: radiculopathy, epidural mass Referrals: Name,MD Rafi [Primary Care Provider] - 1 Week Discharge Medications: New methylprednisolone [Methylpred DP] 4 mg tablets,dose pack 4 mg PO DAILY Qty: 21 0RF Rx Instructions: received day 1 and 2 in hospital, start from day 3 Continued atorvastatin 20 mg tablet 1 tab PO DAILY lisinopril 20 mg tablet 1 tab PO DAILY clonazepam 0.5 mg tablet 1 tab PO TID PRN (Reason: Anxiety) sertraline 100 mg tablet 1 tab PO DAILY cyanocobalamin (vitamin B-12) 1,000 mcg tablet 1 tab PO DAILY chlorthalidone 25 mg tablet 1 tab PO DAILY zolpidem 10 mg tablet 1 tab PO BEDTIME PRN (Reason: Sleep) risperidone 1 mg tablet 1 tab PO BEDTIME Fish Oil 340-1,000 mg capsule 1 cap PO DAILY Discharge Orders: Discharge Order (Routine); Ordered 06/14/22 Ordered By: Carmelo Self Diet: Advance to usual diet Activity on Discharge: As tolerated Stand Alone Forms: Patient Portal Discharge page Care Plan Goals: manage pain Health Concerns: radiculopathy and epidural mass at cauda equina Plan of Treatment: medrol dose fernando from day 3, PT, pain control, if worsening follow up with neurosurgery Assessment: see above
--- NOTE | 2022-06-14 09:09 | MHC.CM.PN ---
Patient has been medically cleared for dc to home today, self care.
== END 2022-06-14 10:58 | disposition home or self-care (01) | DRG 92 ==
LOC: HO.ED 23:00 → HO.EDOVER 23:03 → HO.IMC 06-12 05:11
PROVIDERS: Nurse Practitioner Family; Admitting Provider Internal Medicine; Emergency Provider Emergency Medicine; PCP Internal Medicine Geriatric Medicine; Visit Provider Internal Medicine
DX: G95.9 Disease of spinal cord, unspecified (principal); N17.9 Acute kidney failure, unspecified; I10 Essential (primary) hypertension; M51.16 Intervertebral disc disorders with radiculopathy, lumbar region; F41.9 Anxiety disorder, unspecified; E78.5 Hyperlipidemia, unspecified; F32.A Depression, unspecified; Z20.822 Contact with and (suspected) exposure to COVID-19; E86.0 Dehydration; Z87.891 Personal history of nicotine dependence; Z79.899 Other long term (current) drug therapy
CPT/HCPCS: 36415; 70551; 72131; 72158; 73522; 74176; 80048; 81003; 83735; 84484; 85025; 85027; 85610; 85730; 87635; 93005; 99285; A9585; J1170; J2270; J2405

== ENCOUNTER 2022-06-21 16:40 | Emergency (ER) | payer OTHER, SELFPAY ==
[2022-06-21] VITALS (7 sets, daily range): BP systolic 119–147; BP diastolic 61–101; PULSE 68–94; RESP 17–19; TEMP 36.5; O2SAT 97–99; BMI 25.0
--- NOTE | ~2022-06-21 | XR_ITS ---
EXAMINATION: XR CHEST CLINICAL INFORMATION: Syncope COMPARISON: 02/14/2018 TECHNIQUE: Frontal view of the chest was obtained. FINDINGS: No significant abnormality is noted involving the heart, lungs, mediastinum, bony thorax or soft tissues. XR/XR chest 1V IMPRESSION: Unremarkable examination.
--- NOTE | 2022-06-21 17:07 | ECG_ITS ---
Test Reason : SYNCOPE Blood Pressure : / mmHG Vent. Rate : 080 BPM Atrial Rate : 080 BPM P-R Int : 164 ms QRS Dur : 078 ms QT Int : 372 ms P-R-T Axes : 054 -09 021 degrees QTc Int : 429 ms Normal sinus rhythm Normal ECG When compared with ECG of 11-JUN-2022 23:39, No significant change was found Referred By: Hao Blackwlel Electronically Signed By:KALEIGH HERNÁNDEZ
--- NOTE | 2022-06-21 17:12 | ED_ITS ---
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 Patient was evaluated by his PCP today, patient was sitting when he tried to st and up became very diaphoretic and very lightheadedness with almost passing out but never passed out, blood pressure was obtained instantly and found to be low, blood sugar also was checked and was 122. Patient reportedly that he has been feeling fine otherwise, no diarrhea, no nausea, no vomiting, no chest pain, no abdominal pain, no shortness of breath, no fever, no chills, reportedly he was drinking enough fluid. Patient in the ED feels normal now. Patient had a recent hospitalization for low back pain radiating to both lower extremities MRI found to have lumbar spine epidural mass, patient was referred to neurosurgery service at [facility], patient is pending appointment an MRI and [facility]. Patient complaining that he is unable to ambulate on his own due to weakness in bilateral lower extremities that been for the past 10 days. Daughter who is also a caregiver confirms there is no worsening of the weakness, no urinary or stool incontinence. Related Data Home Medications Medication Instructions Recorded Confirmed atorvastatin 20 mg tablet 1 tab PO DAILY 06/12/22 06/12/22 chlorthalidone 25 mg tablet 1 tab PO DAILY 06/12/22 06/12/22 clonazepam 0.5 mg tablet 1 tab PO TID PRN Anxiety 06/12/22 06/12/22 cyanocobalamin (vitamin B-12) 1 tab PO DAILY 06/12/22 06/12/22 1,000 mcg tablet lisinopril 20 mg tablet 1 tab PO DAILY 06/12/22 06/12/22 omega-3 fatty acids-fish oil 340 1 cap PO DAILY 06/12/22 06/12/22 mg-1,000 mg capsule (Fish Oil) risperidone 1 mg tablet 1 tab PO BEDTIME 06/12/22 06/12/22 sertraline 100 mg tablet 1 tab PO DAILY 06/12/22 06/12/22 zolpidem 10 mg tablet 1 tab PO BEDTIME PRN Sleep 06/12/22 06/12/22 Previous Rx's Medication Instructions Recorded methylprednisolone 4 mg tablets in 4 mg PO DAILY #21 ea 06/14/22 a dose pack (Methylpred DP) Allergies Allergy/AdvReac Type Severity Reaction Status Date / Time No Known Allergies Allergy Verified 06/11/22 18:31 Review of Systems Review of Systems: All other systems are reviewed and are negative Constitutional: Reports as per HPI and Reports no additional constitutional complaints Eyes: Reports as per HPI and Reports no additional eye complaints Reports system reviewed and no additional complaints, except as documented Cardiovascular: Reports as per HPI and Reports no additional cardiovascular complaints Respiratory: Reports as per HPI and Reports no additional respiratory complaints Gastrointestinal: Reports as per HPI and Reports no additional gastrointestinal complaints Genitourinary: Reports no additional female genitourinary complaints Musculoskeletal: Reports no additional musculoskeletal complaints Skin/Breast: Reports system reviewed and no additional complaints, except as docu Psychiatric: Reports no additional psychiatric complaints Endocrine: Reports no additional endocrine complaints Hematologic/Lymphatic: Reports no additional hematologic/lymphatic complaints Allergic/Immunologic: Reports no additional allergic/immunologic complaints Reports system reviewed and no additional complaints, except as documented and Reports Abnormal speech present [facility] Past Medical History Medical History Anxiety and depression History of hypertension Surgical History No pertinent past surgical history Family History Family History Other No family history of coronary artery disease Social History Social History Alcohol intake: never Patient Tobacco Use Status: Former Tobacco user Tobacco use type: Cigarette Cigarettes Per Day: 2 Use of substances other than those prescribed or required for medical reasons: No Advance Directives: No Advance Directives Information Provided: No service: No Current occupational status: disabled Physical Exam ED Vital Signs: Vital Signs - 24 hr 06/21/22 17:01 06/21/22 18:21 06/21/22 18:47 Temperature 97.7 F Pulse Rate 71 78 83 Respiratory Rate 17 Blood Pressure 119/84 125/77 140/101 H Pulse Oximetry 97 97 Oxygen Delivery Method Room Air Room Air 06/21/22 18:49 08/10/22 18:51 06/21/22 18:56 Temperature 97.7 F Pulse Rate 85 94 83 Respiratory Rate 19 Blood Pressure 147/99 H 134/61 140/101 H Pulse Oximetry 99 Oxygen Delivery Method Room Air BMI result Body Mass Index 25.0 Vital signs have been reviewed as appeared to be correct. Blood pressure normal. Heart rate normal. Respiration rate normal. Temperature normal. Oxygen saturation normal. Appearance: Alert. Oriented X3. No acute distress. Head: Normal external exam. Normocephalic. Atraumatic. No [place] signs noted. No raccoon eyes noted Eyes: PERRLA. EOMI. Conjunctiva and sclera normal. Eyelids normal. ENT: TM's Normal. Pharynx normal. Uvula midline. Moist mucous membranes. No trismus noted. No drooling noted. No muffled voice noted. Neck: Normal inspection. Neck supple. FROM. No adenopathy. Thyroid Normal. No meningeal signs. No neck mass noted. CVS: Normal heart rate and rhythm. Heart sound normal. No murmurs noted. Pulses normal throughout. Respiratory: No respiratory distress. Painless inspiration. Breath sounds normal. No wheezes/rales/rhonchi noted. Chest nontender. No accessory muscle usage noted or decreased air movement noted. Abdomen: Soft and nontender. Bowel sounds normal in all 4 quadrants. No distention noted. No organomegaly noted. No visible injury noted. Back: No CVA tenderness. Full range of motion noted. Skin: Skin warm and dry. Normal skin color. Normal skin turgor. No rashes/lesions/lacerations noted. Extremities: No lower extremity edema. Extremities exhibit normal range of motion. Extremities nontender. Neuro: Oriented X 3. Cranial nerve exam: II-XII are grossly intact No motor deficit. No sensory deficit. Reflexes normal. Course Course Course Narrative: 66-year-old male history of epidural mass that he is in the process to be evaluated by Neurosurgery at [facility], patient is scheduled to have MRI at [facility] as per Neurosurgery request, patient today was evaluated by PCP for his ongoing symptoms of lower extremities weakness sent to the emergency department for having orthostatic hypotension and near-syncope in the ED patient has no complaint otherwise except his old complain of lower extremities weakness and decrease ability of ambulation at home and needing family and divorce legal assistant at home. Patient was offered to stay in the ED and get to short-term rehab for further physical therapy evaluation but patient declined family at the bedside also would like to take the patient home, attempt to get the patient out of bed to ambulate but patient refuse. Medical Decision Making Lab Data Lab results reviewed: Yes I reviewed the patient's lab results. Result diagrams: 06/21/22 18:14 06/21/22 18:14 Labs: Lab Results 06/21/22 06/21/22 06/21/22 Range/Units 18:14 18:14 18:14 WBC 6.0 (4.8-10.8) X10*3/uL RBC 4.36 L (4.60-5.80) X10*6/uL Hgb 14.3 (14.0-18.0) g/dl Hct 42.1 D (42.0-52.0) % MCV 96.6 (80.0-98.0) fL MCH 32.8 (27.0-33.0) pg MCHC 34.0 (31.0-36.0) g/dl RDW 11.9 (11.0-16.0) % Plt Count 224 D (160-400) X10*3/uL MPV 10.2 (9.4-12.4) fL Immature Gran % (Auto) 0.7 H (0.0-0.4) % Neut % (Auto) 76.0 H (45-73) % Lymph % (Auto) 15.2 L (20-40) % [place] % (Auto) 7.2 (2-11) % Eos % (Auto) 0.7 (0-4) % Baso % (Auto) 0.2 (0-2) % Lymph # (Auto) 0.9 L (1.2-4.9) X10*3/uL [place] # (Auto) 0.4 (0.1-1.2) X10*3/uL Eos # (Auto) 0.0 (0.0-0.4) X10*3/uL Baso # (Auto) 0.0 (0.0-0.2) X10*3/uL Abs Immat Gran (auto) 0.04 H (0.00-0.03) X10*3/uL Absolute Neuts (auto) 4.6 (2.0-8.3) x10*3/uL Absolute Nucleated RBC 0.000 (0.0-0.012) X10*3/uL Nucleated RBC % (auto) 0.0 (0.0-0.2) /100WBC Sodium 140 (135-145) mmol/L Potassium 4.3 (3.3-5.1) mmol/L Chloride 104 (96-108) mmol/L Carbon Dioxide 26 (22-29) mmol/L Anion Gap 14 (12-20) BUN 24 H (9-16) mg/dL Creatinine 1.15 (0.5-1.4) mg/dL Estim Creat Clear Calc 56.4 Estimated GFR > 60 Random Glucose 106 (60-115) mg/dL Calcium 9.7 (8.4-10.2) mg/dL Total Bilirubin 0.3 (0.0-1.0) mg/dL Direct Bilirubin 0.2 (0.0-0.5) mg/dL AST 28 (5-37) U/L ALT 47 H (0-40) U/L Alkaline Phosphatase 59 (39-117) U/L Troponin I High Sens < 3.5 (<3.5-35.0) ng/L B-Natriuretic Peptide < 10 (<100) pg/mL Total Protein 7.1 (6.5-8.0) g/dL Albumin 4.5 (3.5-5.0) g/dL Lipase 75 (8-78) U/L COVID-19 (TRACE) (Negative) COVID-19 Clin Com 06/21/22 Range/Units 18:14 WBC (4.8-10.8) X10*3/uL RBC (4.60-5.80) X10*6/uL Hgb (14.0-18.0) g/dl Hct (42.0-52.0) % MCV (80.0-98.0) fL MCH (27.0-33.0) pg MCHC (31.0-36.0) g/dl RDW (11.0-16.0) % Plt Count (160-400) X10*3/uL MPV (9.4-12.4) fL Immature Gran % (Auto) (0.0-0.4) % Neut % (Auto) (45-73) % Lymph % (Auto) (20-40) % [place] % (Auto) (2-11) % Eos % (Auto) (0-4) % Baso % (Auto) (0-2) % Lymph # (Auto) (1.2-4.9) X10*3/uL [place] # (Auto) (0.1-1.2) X10*3/uL Eos # (Auto) (0.0-0.4) X10*3/uL Baso # (Auto) (0.0-0.2) X10*3/uL Abs Immat Gran (auto) (0.00-0.03) X10*3/uL Absolute Neuts (auto) (2.0-8.3) x10*3/uL Absolute Nucleated RBC (0.0-0.012) X10*3/uL Nucleated RBC % (auto) (0.0-0.2) /100WBC Sodium (135-145) mmol/L Potassium (3.3-5.1) mmol/L Chloride (96-108) mmol/L Carbon Dioxide (22-29) mmol/L Anion Gap (12-20) BUN (9-16) mg/dL Creatinine (0.5-1.4) mg/dL Estim Creat Clear Calc Estimated GFR Random Glucose (60-115) mg/dL Calcium (8.4-10.2) mg/dL Total Bilirubin (0.0-1.0) mg/dL Direct Bilirubin (0.0-0.5) mg/dL AST (5-37) U/L ALT (0-40) U/L Alkaline Phosphatase (39-117) U/L Troponin I High Sens (<3.5-35.0) ng/L B-Natriuretic Peptide (<100) pg/mL Total Protein (6.5-8.0) g/dL Albumin (3.5-5.0) g/dL Lipase (8-78) U/L COVID-19 (TRACE) Negative (Negative) COVID-19 Clin Com See Note Imaging Data Chest x-ray: Attestation: I personally reviewed and interpreted this imaging study as follows: Radiologist's impression: No acute pathology ECG Data Attestation: I personally reviewed and interpreted this ECG as follows: Interpretation: Normal sinus rhythm at 80 beats per minutes, left axis deviation, normal intervals, no significant change from previous EKG. Discharge Plan Discharge Clinical Impression: Lumbar epidural mass, Vasovagal syncope, Syncope due to orthostatic hypotension Patient Disposition: Home, Self-Care Instructions: Syncope (ED) Prescriptions: No Action atorvastatin 20 mg tablet 1 tab PO DAILY lisinopril 20 mg tablet 1 tab PO DAILY clonazepam 0.5 mg tablet 1 tab PO TID PRN (Reason: Anxiety) sertraline 100 mg tablet 1 tab PO DAILY cyanocobalamin (vitamin B-12) 1,000 mcg tablet 1 tab PO DAILY chlorthalidone 25 mg tablet 1 tab PO DAILY zolpidem 10 mg tablet 1 tab PO BEDTIME PRN (Reason: Sleep) risperidone 1 mg tablet 1 tab PO BEDTIME Fish Oil 340-1,000 mg capsule 1 cap PO DAILY methylprednisolone [Methylpred DP] 4 mg tablets,dose pack 4 mg PO DAILY Qty: 21 0RF Rx Instructions: received day 1 and 2 in hospital, start from day 3 Referrals: Name,MD Rafi [Primary Care Provider] -
[2022-06-21 18:20] LABS: MANUAL DIFF FLAG NO
[2022-06-21 18:24] LABS: Basophils Percent Auto 0.2 % (0-2); Eosinophils Percent Auto 0.7 % (0-4); Hematocrit 42.1 % (42.0-52.0); Hemoglobin 14.3 g/dl (14.0-18.0); Imm Gran Abs Auto 0.04 X10*3/uL (0.00-0.03); Imm Gran Pct Auto 0.7 % (0.0-0.4); Lymphocytes Absolute Auto 0.9 X10*3/uL (1.2-4.9); Lymphocytes Percent Auto 15.2 % (20-40); Mean Corpuscular Hemoglobin 32.8 pg (27.0-33.0); Mean Corpuscular Volume 96.6 fL (80.0-98.0); Mean Platelet Volume 10.2 fL (9.4-12.4); Monocytes Absolute Auto 0.4 X10*3/uL (0.1-1.2); Monocytes Percent Auto 7.2 % (2-11); Neutrophils Absolute Auto 4.6 x10*3/uL (2.0-8.3); Platelet Count 224 X10*3/uL (160-400); Red Blood Count 4.36 X10*6/uL (4.60-5.80); Red Cell Distribution Width 11.9 % (11.0-16.0)
[2022-06-21] MEDS: 0.9 % Sodium Chloride 1,000 ML 999 ML IV (18:26)
[2022-06-21 18:36] LABS: Alanine Aminotransferase 47 U/L (0-40); Albumin Level 4.5 g/dL (3.5-5.0); Alkaline Phosphatase 59 U/L (39-117); Anion Gap 14 (12-20); Aspartate Amino Transferase 28 U/L (5-37); Bilirubin Direct 0.2 mg/dL (0.0-0.5); Bilirubin Total 0.3 mg/dL (0.0-1.0); Blood Urea Nitrogen 24 mg/dL (9-16); COVID-19 Test Negative (Negative); Calcium 9.7 mg/dL (8.4-10.2); Carbon Dioxide 26 mmol/L (22-29); Chloride 104 mmol/L (96-108); Creatinine Clr Calc Pharmacy 56.4; Estimated Glomerular Filt Rate > 60; Glucose Random 106 mg/dL (60-115); Lipase 75 U/L (8-78); Potassium 4.3 mmol/L (3.3-5.1); Sodium 140 mmol/L (135-145); Total Protein 7.1 g/dL (6.5-8.0)
[2022-06-21 18:41] LABS: B Type Natriuretic Peptide < 10 pg/mL (<100); Troponin-I High Sensitivity < 3.5 ng/L (<3.5-35.0)
--- NOTE | 2022-06-21 20:45 | PC.NURSE ---
asked if pt could ambulate prior to dc. pt refusing to ambulate stating he does not want to, dtr at bedside who states she lives with pt. pt able to transfer to w/c with slow gait
== END 2022-06-21 20:45 | disposition home or self-care (01) ==
PROVIDERS: Emergency Provider Emergency Medicine; PCP Internal Medicine Geriatric Medicine
DX: I95.1 Orthostatic hypotension (principal); G95.89 Other specified diseases of spinal cord
CPT/HCPCS: 71045; 80048; 80076; 83690; 83880; 84484; 85025; 87635; 93005; 99283; 99285

== ENCOUNTER 2023-01-16 07:13 | Outpatient (REF) | payer OTHER, SELFPAY ==
--- NOTE | ~2023-01-16 | CT_ITS ---
EXAMINATION: CT HEAD WITHOUT CONTRAST CLINICAL INFORMATION: Seizure. Recurrent spells. COMPARISON: None TECHNIQUE: Contiguous axial imaging was performed from the skull base to vertex without intravenous administration of contrast. This CT examination was performed using dose optimization techniques as appropriate, variously including the following: *Automated exposure control *Adjustment of mA and/or kV according to patient size (this includes techniques or standardized protocols for targeted exams where dose is matched to indication/reason for exam; i.e. extremities or head) *Use of iterative reconstruction technique DLP: 709 mGy-cm FINDINGS: There is no acute intra-axial, extra-axial bleed, masses or midline shift. There is no acute infarction in evolution. The dunbar to white matter difference is maintained. There is a focal asymmetric hypodensity left frontal lobe deep white matter. The lateral ventricles are symmetrical in size and configuration without enlargement. Bone windows reveal no calvarial abnormality. Bilateral paranasal sinuses are well-aerated with mucoperiosteal thickening in both ethmoid sinuses. The mastoid sinuses are clear. No gross bony abnormality seen. CT/CT head/brain wo IV con IMPRESSION: Asymmetric subtle hypodensity in the left frontal lobe at the dunbar-white matter junction. Question white matter changes, edema. Recommend outpatient MRI brain.
== END 2023-01-16 07:14 | disposition home or self-care (01) ==
LOC: HO.CT 07:13
PROVIDERS: PCP Internal Medicine Geriatric Medicine; Visit Provider Internal Medicine Geriatric Medicine
DX: R56.9 Unspecified convulsions (principal)
CPT/HCPCS: 70450

== ENCOUNTER 2023-02-08 17:45 | Outpatient (REF) | payer OTHER, SELFPAY ==
--- NOTE | ~2023-02-08 | MR_ITS ---
EXAMINATION: MR BRAIN WITH AND WITHOUT CONTRAST CLINICAL INFORMATION: Seizures, abnormal head CT COMPARISON: CT head 01/16/2023 and MRI brain 06/12/2022 TECHNIQUE: MRI of the brain was obtained using routine sequences before and following administration of intravenous contrast. A total of 7.5 mL of Gadavist was administered intravenously. FINDINGS: No acute infarct. The GRE sequence is without susceptibility artifact to suggest acute or chronic blood products. No extra-axial fluid collection. The ventricles and sulci are normal in size and configuration without significant volume loss or hydrocephalus. Stable patchy T2 hyperintense foci within the subcortical and periventricular white matter are nonspecific but most suggestive of mild to moderate chronic microangiopathy. Previously queried asymmetric hypodensities within the deep left frontal white matter on CT correspond to foci of chronic ischemia. Dedicated coronal oblique imaging through the temporal lobes reveal symmetric appearance of the bilateral hippocampi with normal morphology and signal intensity. No evidence of mesial temporal sclerosis. No abnormal intraparenchymal or leptomeningeal enhancement. No significant mass effect or herniation pattern. The intracranial dural venous sinus and arterial flow voids are preserved. Normal appearance of the midline structures. The orbits are grossly unremarkable. Patchy opacification throughout the nasal cavity with 5 mm proteinaceous mucus retention cyst/polyp in the right nasal cavity with intrinsic T1 shortening. Redemonstrated moderate bilateral ethmoid air cell mucosal disease. Mild bilateral maxillary sinus mucosal disease with mucous retention cyst/polyp on the right and new small air-fluid level on the left. New left sphenoid sinus air-fluid level. A few mastoid air cells are opacified. Normal marrow signal. MR/MR head/brain wo/w con IMPRESSION: 1. No acute intracranial abnormality, specifically without evidence of epileptogenic lesion identified. No abnormal intracranial enhancement. 2. 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 3. Sinonasal mucosal disease with patchy opacification and new small air-fluid levels in the left maxillary and left sphenoid sinuses, which can be correlated for signs of acute sinusitis.
== END 2023-02-08 17:46 | disposition home or self-care (01) ==
LOC: HO.MRI 17:45
PROVIDERS: PCP Internal Medicine Geriatric Medicine; Visit Provider Internal Medicine Geriatric Medicine
DX: R93.0 Abnormal findings on diagnostic imaging of skull and head, not elsewhere classified (principal); R56.9 Unspecified convulsions
CPT/HCPCS: 70553; A9585